=== PATIENT | female | born 1935 | race Caucasian/White ===

== ENCOUNTER 2019-08-06 06:33 | Day surgery (SDC) | payer OTHER ==
[~2019-08-06] VITALS: Ht 144.8 cm; Wt 82.7 kg
[~2019-08-06 06:33] MED LIST: SODIUM CHLORIDE 0.9% 1,000 ML IV ONE
[2019-08-06] MEDS ORDERED: BENZOCAINE 20% 50 MCG/SPRAY 57 GM TP ONE (06:34)
[2019-08-06] MEDS ORDERED: LIDOCAINE 2% 5 ML JELLY TP ONE (06:34)
[2019-08-06] MEDS ORDERED: ALBUTEROL SULFATE 2.5 MG/0.5 ML NEB SOLUTION NEB ONE (06:34)
[2019-08-06] MEDS ORDERED: FOLI1 PO (07:07)
[2019-08-06] MEDS ORDERED: TELM40 PO (07:07)
[2019-08-06] MEDS ORDERED: AMLO2.5T4 PO (07:07)
[2019-08-06] MEDS ORDERED: RANI150T7 PO (07:07)
[2019-08-06] MEDS ORDERED: CRAN450T10 PO (07:07)
[2019-08-06] MEDS ORDERED: FURO20 PO (07:07)
[2019-08-06] MEDS ORDERED: FERR-82 PO (07:07)
[2019-08-06] MEDS ORDERED: PRED1 PO (07:07)
[2019-08-06] MEDS ORDERED: AZAT50TA35 PO (07:07)
[2019-08-06] MEDS ORDERED: ASPI81 PO (07:07)
[2019-08-06] MEDS ORDERED: MIDAZOLAM HCL 2 MG/2 ML VIAL ONE (07:56)
[2019-08-06] MEDS ORDERED: FentaNYL CITRATE-PF 100 MCG/2 ML VIAL ONE (07:57)
[2019-08-06] MEDS ORDERED: MethylPREDNISolone SOD SUCC 125 MG/2 ML VIAL ONE (08:41)
[2019-08-06] MEDS ORDERED: MethylPREDNISolone SOD SUCC 125 MG/2 ML VIAL IVP ONE (08:45)
[2019-08-06] MEDS ORDERED: OXYGEN THERAPY IH SCH (20:00)
== END 2019-08-06 10:10 | disposition home or self-care (01) ==
LOC: SURGERY 06:33
PROVIDERS: ATTEND Internal Medicine Critical Care Medicine
DX: J38.4 Edema of larynx (principal); B37.0 Candidal stomatitis; J45.909 Unspecified asthma, uncomplicated; J98.8 Other specified respiratory disorders; I10 Essential (primary) hypertension; Z79.899 Other long term (current) drug therapy; Z90.49 Acquired absence of other specified parts of digestive tract; Z90.710 Acquired absence of both cervix and uterus; Z98.890 Other specified postprocedural states
CPT/HCPCS: 31623; 31624; 71045; 87015; 87070; 87101; 87205; 87206; 87220; 88108; 88312; 93005; J2250; J2930; J3010; J7030

== ENCOUNTER 2021-04-06 06:35 | Day surgery (SDC) | payer OTHER ==
[2021-04-04 15:04] LABS: COVID AG,FIA SOURCE NASOPHARYNGEAL
[~2021-04-06] VITALS: Ht 144.8 cm; Wt 81.8 kg
[~2021-04-06 06:35] MED LIST changes: +AMLO2.5T96 PO; +ASPI-1450 PO; +AZAT50TA35 PO; +CRAN450T10 PO; +FERR-82 PO; +FOLI-130 PO; +FURO20 PO; +PRED1 PO; +RANI150T7 PO; +SODIUM CHLORIDE 0.9% 1,000 ML ONE; +TELM40 PO
[2021-04-06] MEDS ORDERED: ALBUTEROL SULFATE 2.5 MG/0.5 ML NEB SOLUTION NEB ONE (06:36)
[2021-04-06] MEDS ORDERED: LIDOCAINE 2% 30 ML JELLY TP ONE (06:36)
[2021-04-06] MEDS ORDERED: BENZOCAINE 20% 50 MCG/SPRAY 57 GM TP ONE (06:36)
[2021-04-06] MEDS ORDERED: LIDOCAINE 4% 50 ML SOLUTION TP ONE (06:36)
[2021-04-06] MEDS ORDERED: FentaNYL CITRATE PF 100 MCG/2 ML VIAL ONE (07:44)
[2021-04-06] MEDS ORDERED: MIDAZOLAM HCL 5 MG/ML VIAL ONE (07:44)
[2021-04-06] MEDS ORDERED: MethylPREDNISolone SOD SUCC 125 MG/2 ML VIAL IVP ONE (09:00)
[2021-04-06] MEDS ORDERED: MethylPREDNISolone SOD SUCC 125 MG/2 ML VIAL ONE (10:06)
[2021-04-06] MEDS ORDERED: OXYGEN THERAPY IH SCH (20:00)
== END 2021-04-06 11:35 | disposition home or self-care (01) ==
LOC: SURGERY 06:35
PROVIDERS: ATTEND Internal Medicine Critical Care Medicine
DX: J38.4 Edema of larynx (principal); B37.0 Candidal stomatitis; Z98.890 Other specified postprocedural states; Z90.49 Acquired absence of other specified parts of digestive tract; Z79.899 Other long term (current) drug therapy; Z90.710 Acquired absence of both cervix and uterus; I10 Essential (primary) hypertension
CPT/HCPCS: 31623; 31624; 71045; 87015; 87070; 87101; 87205; 87206; 87220; 87426; 88108; 88184; 88185; 88312; C9803; J2250; J2930; J3010; J7030; J7613; Z7610